=== PATIENT | male | born 1965 | race African-American/Black ===

== ENCOUNTER 2021-03-27 04:59 | Emergency (ER) | payer MEDICAID ==
[~2021-03-27] VITALS: Ht 172.7 cm; Wt 75.0 kg
[2021-03-27] MEDS ORDERED: IBUPROFEN 600MG TABLET PO STA (06:20)
[2021-03-27] MEDS ORDERED: IBUP-2029 MT (07:37)
[2021-03-27 08:04] VITALS: BP 114/85
== END 2021-03-27 08:10 | disposition home or self-care (01) ==
LOC: ER 04:59
DX: S20.214A Contusion of middle front wall of thorax, initial encounter (principal); S40.011A Contusion of right shoulder, initial encounter; V49.49XA Driver injured in collision with other motor vehicles in traffic accident, initial encounter; Y93.89 Activity, other specified; Y92.89 Other specified places as the place of occurrence of the external cause; Y99.8 Other external cause status
CPT/HCPCS: 71045; 73030; 93005; 99284

== ENCOUNTER 2021-08-06 02:21 | Emergency (ER) | payer MEDICAID ==
[~2021-08-06] VITALS: Ht 172.7 cm; Wt 68.8 kg
[~2021-08-06 02:21] MED LIST: IBUP-2029 MT
[2021-08-06] MEDS ORDERED: ONDANSETRON HCL 4MG/2ML INJ IV STA (03:37)
[2021-08-06] MEDS ORDERED: KETOROLAC 30MG/ML VIAL IV STA (03:37)
[2021-08-06] MEDS ORDERED: SODIUM CHLORIDE 0.9% 1,000 ML IV ONE (03:45)
[2021-08-06 04:00] LABS: BASOPHILS % 0.3 % (0.0-2.0); EOSINOPHILS % 1.7 % (0.0-5.0); HEMATOCRIT. 43.3 % (42.0-52.0); HEMOGLOBIN. 14.8 g/dL (14.0-18.0); MEAN CORPUSCULAR HEMOGLOBIN 33.2 pg (28.0-32.0); MEAN CORPUSCULAR VOLUME 96.8 fL (80.0-94.0); MEAN PLATELET VOLUME 8.2 fl (7.4-10.4); MONOCYTES % 7.3 % (2.0-8.0); NEUTROPHILS % 68.7 % (40.0-76.0); PLATELET 249 x1000/uL (130-400); RED BLOOD CELL COUNT 4.47 mill/uL (4.7-6.1); RED CELL DISTRIBUTION WIDTH 12.8 % (11.6-14.6)
[2021-08-06 04:07] LABS: CHLORIDE 103 mEq/L (98-107)
[2021-08-06 04:13] LABS: CLARITY URINE CLOUDY (CLEAR); KETONES URINE 2+ (NEGATIVE); LEUKOCYTE ESTERASE URINE 3+ (NEGATIVE); NITRITE URINE POSITIVE (NEGATIVE); OCCULT BLOOD URINE 3+ (NEGATIVE); PROTEIN URINE 3+ (NEGATIVE); SPECIFIC GRAVITY URINE 1.012 (1.005-1.030)
[2021-08-06 04:14] LABS: COLOR URINE BLOODY (YELLOW)
[2021-08-06 05:40] VITALS: BP 116/81
[2021-08-06] MEDS ORDERED: CIPR-263 MT (05:40)
[2021-08-06] MEDS ORDERED: TAMS-11 MT (05:40)
[2021-08-06] MEDS ORDERED: IBUP-2028 MT (05:40)
[2021-08-06] MEDS ORDERED: CEFTRIAXONE 1 G PREMIX 50 ML IV ONE (05:45)
== END 2021-08-06 05:47 | disposition home or self-care (01) ==
LOC: ER 03:14
DX: N39.0 Urinary tract infection, site not specified (principal); R31.9 Hematuria, unspecified; N20.0 Calculus of kidney; Z98.890 Other specified postprocedural states
CPT/HCPCS: 36415; 74176; 80053; 81003; 85025; 96361; 96365; 96375; 99284; J1885; J2405; J7030

== ENCOUNTER 2021-08-06 07:23 | Emergency (ER) | payer MEDICAID ==
[~2021-08-06] VITALS: Ht 172.7 cm; Wt 75.0 kg
[~2021-08-06 07:23] MED LIST changes: +CIPR-263 MT; +IBUP-2028 MT; +TAMS-11 MT
[2021-08-06 08:15] VITALS: BP 126/85
== END 2021-08-06 08:15 | disposition home or self-care (01) ==
LOC: ER 07:33
DX: Z76.0 Encounter for issue of repeat prescription (principal)
CPT/HCPCS: 99281

== ENCOUNTER 2023-05-20 19:02 | Emergency (ER) | payer MEDICAID ==
[~2023-05-20] VITALS: Ht 172.7 cm; Wt 79.0 kg
[~2023-05-20 19:02] MED LIST changes: +NAPR500T7 MT
[2023-05-20 19:32] VITALS: BP 129/92; PULSE 97; RESP 18; TEMP 98.6; O2SAT 98
[2023-05-20 21:33] LABS: BASOPHILS % 0.2 % (0.0-2.0); EOSINOPHILS % 2.5 % (0.0-5.0); HEMATOCRIT. 40.4 % (42.0-52.0); HEMOGLOBIN. 13.2 g/dL (14.0-18.0); LYMPHOCYTES % 33.1 % (20.0-50.0); MEAN CORPUSCULAR HEMOGLOBIN 31.3 pg (28.0-32.0); MEAN CORPUSCULAR HGB CONC 32.7 g/dL (31.0-37.0); MEAN CORPUSCULAR VOLUME 95.9 fL (80.0-94.0); MEAN PLATELET VOLUME 7.9 fl (7.4-10.4); MONOCYTES % 9.2 % (2.0-8.0); PLATELET 282 x1000/uL (130-400); RED BLOOD CELL COUNT 4.22 mill/uL (4.7-6.1); RED CELL DISTRIBUTION WIDTH 13.5 % (11.6-14.6)
[2023-05-20 21:46] LABS: CHLORIDE 107 mEq/L (98-107); INDEX HEMOLYSI 1 (1-3); INDEX ICTERIC 1 (1-4); INDEX LIPEMIC 1 (1-3); POTASSIUM 3.3 mEq/L (3.5-5.1); SODIUM 139 mEq/L (136-145)
[2023-05-20 21:56] LABS: ALANINE AMINOTRANSFERASE 21 IU/L (13-61); ALBUMIN 3.8 g/dL (3.4-5.0); ASPARTATE AMINOTRANSFERASE 19 IU/L (15-37); BILIRUBIN TOTAL 1.2 mg/dL (0.1-1.0); CALCIUM 8.7 mg/dL (8.5-10.1); CARBON DIOXIDE 28 mEq/L (21-32); GLUCOSE 86 mg/dL (70-105); PROTEIN TOTAL 7.3 g/dL (6.0-8.3); UREA NITROGEN BLOOD 9 mg/dL (7-21)
[2023-05-20 22:05] LABS: TROPONIN I HIGH SENSITIVITY < 4 ng/L (<78)
[2023-05-20] MEDS: POTASSIUM CHLORIDE 20MEQ/PACKET PO NR (22:46)
== END 2023-05-20 23:15 | disposition home or self-care (01) ==
LOC: ER 19:02
DX: R11.0 Nausea (principal); Z00.00 Encounter for general adult medical examination without abnormal findings
CPT/HCPCS: 36415; 80053; 84484; 85025; 99283

== ENCOUNTER 2023-09-12 20:13 | Emergency (ER) | payer MEDICAID ==
[~2023-09-12] VITALS: Ht 172.7 cm; Wt 63.2 kg
[~2023-09-12 20:13] MED LIST changes: -CIPR-263 MT; -IBUP-2028 MT; -IBUP-2029 MT; -NAPR500T7 MT
[2023-09-12 21:30] VITALS: BP 139/95; RESP 16; TEMP 98.5; O2SAT 97
[2023-09-12 21:38] VITALS: PULSE 112
== END 2023-09-12 22:16 | disposition home or self-care (01) ==
LOC: ER 20:13
DX: Z00.00 Encounter for general adult medical examination without abnormal findings (principal)
CPT/HCPCS: 99281